=== PATIENT | female | born 1995 | race African-American/Black ===

== ENCOUNTER 2017-01-03 13:28 | Emergency (ER) | payer BC ==
[~2017-01-03] VITALS: Ht 185.4 cm; Wt 125.0 kg
[~2017-01-03 13:28] MED LIST: PREN-88 PO
[2017-01-03 13:36] VITALS: BP 117/70
== END 2017-01-03 22:45 | disposition left against medical advice (07) ==
LOC: ER 22:41
DX: Z53.21 Procedure and treatment not carried out due to patient leaving prior to being seen by health care provider (principal)